=== PATIENT | male | born 1975 | race Caucasian/White ===

== ENCOUNTER 2021-09-04 01:24 | Emergency (ER) | payer OTHER ==
[2021-09-04 02:10] VITALS: BP 151/83; TEMP 97.9; BMI 39.0
[2021-09-04 03:12] VITALS: PULSE 90
== END 2021-09-04 04:41 | disposition home or self-care (01) ==
LOC: JER 01:24
DX: E16.2 Hypoglycemia, unspecified (principal); R00.2 Palpitations
CPT/HCPCS: 82962; 93005; 93010; 99284-25